=== PATIENT | female | born 1985 | race Caucasian/White ===

== ENCOUNTER → 2019-04-03 | Outpatient (CLI) | payer OTHER ==
[~2019-04-03] MED LIST: CLARITIN REDITA10 MG PO; FLONASE0.05 MG/AC NAS; HYDROCODONE BIT1 T11 PO; IBU-6600 MG PO; TAMIFLU75 MG PO; ZYRTEC10 MG PO
== END | disposition home or self-care (01) ==
LOC: RAD 16:43
DX: R07.9 Chest pain, unspecified (principal); R05 Cough; H65.91 Unspecified nonsuppurative otitis media, right ear